=== PATIENT | female | born 1960 | race Caucasian/White ===

== ENCOUNTER → 2018-10-11 | Outpatient (CLI) | payer OTHER | END | disposition home or self-care (01) | LOC: CVU 11:30 | PROVIDERS: ATTEND Orthopaedic Surgery | DX: I73.9 Peripheral vascular disease, unspecified (principal); M79.604 Pain in right leg; M79.605 Pain in left leg; Z77.090 Contact with and (suspected) exposure to asbestos | CPT/HCPCS: 71046; 93922; 94060; 94726; 94729 ==